=== PATIENT | male | born 1995 | race Caucasian/White ===

== ENCOUNTER 2017-07-26 04:28 | Emergency (ER) | payer SELFPAY ==
[2017-07-26 04:39] VITALS: BP 149/93
--- NOTE | 2017-07-26 05:15 | EDM.PDOC ---
ED HPI GENERAL MEDICAL PROBLEM - General Chief Complaint: Upper Extremity Injury/Pain Stated Complaint: RIGHT SHOULDER PAIN Time Seen by Provider: 07/26/17 05:11 Source of Information: Reports: Patient - History of Present Illness INITIAL COMMENTS - FREE TEXT/NARRATIVE: HISTORY AND PHYSICAL: History of present illness: [Patient presents after arm wrestling tonight he has complaint of right shoulder pain 8 out of 10 initially he did take 3 Advil and is nonradiating worsened by movement of his arm initially, he arrives with his shoulder in a sling for comfort no fever nausea vomiting chills sweats no chest pain shortness breath headache dizziness palpitation about a urine symptoms Patient went down for x-rays on return removing the right upper extremity from a sling he does have a full range of motion entire limb is neurovascularly intact no redness warmth open lesions no bruising he is tender over the insertion of the bicep tendon as well as pectoralis major I can reproduce symptomology Otherwise x-ray does not appear to have any osseous abnormality acute process or dislocation etc. ] Review of systems: As per history of present illness and below otherwise all systems reviewed and negative. Past medical history: As per history of present illness and as reviewed below otherwise noncontributory. Surgical history: As per history of present illness and as reviewed below otherwise noncontributory. Social history: No reported history of drug or alcohol abuse. Family history: As per history of present illness and as reviewed below otherwise noncontributory. Physical exam: HEENT: Atraumatic, normocephalic, pupils reactive, negative for conjunctival pallor or scleral icterus, mucous membranes moist, throat clear, neck supple, nontender, trachea midline. Lungs: Clear to auscultation, breath sounds equal bilaterally, chest nontender. Heart: S1S2, regular, negative for clicks, rubs, or JVD. Abdomen: Soft, nondistended, nontender. Negative for masses or hepatosplenomegaly. Negative for costovertebral tenderness. Pelvis: Stable nontender. Genitourinary: Deferred. Rectal: Deferred. Extremities: Atraumatic, negative for cords or calf pain. Neurovascular unremarkable. Neuro: Awake, alert, oriented. Cranial nerves II through XII unremarkable. Cerebellum unremarkable. Motor and sensory unremarkable throughout. Exam nonfocal. Diagnostics: [Right shoulder complete ] Therapeutics: [Rest ice ibuprofen Sling for comfort 48 hours maximum] Impression: [Right shoulder pain Muscle spasm/tendinitis] Definitive disposition and diagnosis as appropriate pending reevaluation and review of above. right shoulder Pain Score (Numeric/FACES): 3 - Related Data Allergies Allergy/AdvReac Type Severity Reaction Status Date / Time No Known Allergies Allergy Verified 07/26/17 04:33 Home Meds: Home Meds . [No Known Home Meds] 09/07/15 [History] Past Medical History - Past Health History Medical/Surgical History: Denies Medical/Surgical History Social & Family History - Tobacco Use Smoking Status *Q: Never Smoker - Recreational Drug Use Recreational Drug Use: No - Living Situation & Occupation Occupation: Employed Review of Systems - Review of Systems Review Of Systems: ROS reveals no pertinent complaints other than HPI. ED EXAM, GENERAL - Physical Exam Exam: See Below Course - Vital Signs Last Recorded V/S: Last Vital Signs Temp 97.7 F 07/26/17 04:34 Pulse 105 H 07/26/17 04:34 Resp 16 07/26/17 04:34 BP 149/93 H 07/26/17 04:34 Pulse Ox 96 07/26/17 04:34 - Orders/Labs/Meds Orders: Active Orders 24 hr Category Date Time Status Shoulder Comp Rt [CR] Stat Exams 07/26/17 04:41 Taken Departure - Departure Time of Disposition: 05:13 Disposition: Home, Self-Care 01 Condition: Good Clinical Impression: Muscle spasm, Tendinitis, Right shoulder pain - Discharge Information Referrals: PCP,None [Primary Care Provider] - Additional Instructions: Rest Ice 20 minute intervals 3 times daily as needed Ibuprofen 400-800 mg 3 times daily 7-10 days Return if symptoms persist or worsen or new concerning symptoms develop Follow-up with primary care orthopedist in approximately 2 weeks You may wear your sling for comfort for 48 hours as needed [facility] [address] [place] [id number] [facility] Professional Building [address] [place] [address], [address] [place] [address] my orthopedic The following information is given to patients seen in the emergency department who are being discharged to home. This information is to outline your options for follow-up care. We provide all patients seen in our emergency department with a follow-up referral. The need for follow-up, as well as the timing and circumstances, are variable depending upon the specifics of your emergency department visit. If you don't have a primary care physician on staff, we will provide you with a referral. We always advise you to contact your personal physician following an emergency department visit to inform them of the circumstance of the visit and for follow-up with them and/or the need for any referrals to a consulting specialist. The emergency department will also refer you to a specialist when appropriate. This referral assures that you have the opportunity for follow-up care with a specialist. All of these measure are taken in an effort to provide you with optimal care, which includes your follow-up. Under all circumstances we always encourage you to contact your private physician who remains a resource for coordinating your care. When calling for follow-up care, please make the office aware that this follow-up is from your recent emergency room visit. If for any reason you are refused follow-up, please contact the [facility] emergency department at and asked to speak to the emergency department charge nurse. - My Orders Last 24 Hours: My Active Orders 07/26/17 04:41 Shoulder Comp Rt [CR] Stat - Assessment/Plan Last 24 Hours: My Active Orders 07/26/17 04:41 Shoulder Comp Rt [CR] Stat
--- NOTE | 2017-07-26 16:33 | CR ---
EXAM DATE: 07/26/17 PATIENT'S AGE: 22 Patient: YVON ROSAS Facility: [place], [place] Site . Site : 1995 Study: XRay Shoulder Right [id number] 4:57:56 AM Ordering Physician: Doctor Neff Final Report: Indication: Pain right shoulder after arm wrestling tonight. Prior dislocation. Technique: Right shoulder three views. Comparison: None. Findings: No acute fracture or dislocation. No additional osseous abnormality. Soft tissues as imaged are unremarkable. Impression: No acute osseous abnormality. Dictated by Ricardo Leon MD @ 07/26/2017 5:05:02 AM Dictated by: Ricardo Leon MD @ 07/26/2017 05:05:16 (Electronic Signature) Report Signed by Proxy. [facility]ITAL[facility]
== END 2017-07-26 05:20 | disposition home or self-care (01) ==
LOC: MW.ED 04:28
DX: M75.91 Shoulder lesion, unspecified, right shoulder (principal); M62.838 Other muscle spasm
CPT/HCPCS: 73030-26-RT; 73030-RT; 99283

== ENCOUNTER 2018-08-09 10:41 | Emergency (ER) | payer SELFPAY ==
--- NOTE | 2018-08-09 11:00 | EDM.PDOC ---
ED HPI GENERAL MEDICAL PROBLEM - General Chief Complaint: Abdominal Pain Stated Complaint: STOMACH ACHE Time Seen by Provider: 08/09/18 10:47 Source of Information: Reports: Patient History Limitations: Reports: No Limitations - History of Present Illness INITIAL COMMENTS - FREE TEXT/NARRATIVE: HISTORY AND PHYSICAL: History of present illness: Patient is a 23-year-old male who presents to the emergency room with complaints of upper abdominal pain and multiple bouts of diarrhea. He states he noticed the symptoms starting on Saturday after eating. He reports that anytime he eats he'll have abdominal cramping and diarrhea for the next 2-4 hours. He denies any fever, chills, chest pain, shortness of breath or cough. He denies any nausea, vomiting or dysuria. He has been eating and drinking appropriately although has tried to decrease his intake as he is trying to avoid the symptoms related to food. He has not used any [id number] products. Has not had any recent travel or any antibiotic use. Has not noted any blood or mucus in his stools. Review of systems: As per history of present illness and below otherwise all systems reviewed and negative. Past medical history: As per history of present illness and as reviewed below otherwise noncontributory. Surgical history: As per history of present illness and as reviewed below otherwise noncontributory. Social history: See social history for further information Family history: As per history of present illness and as reviewed below otherwise noncontributory. Physical exam: General: Well-developed and well-nourished when he 3-year-old male. Alert and oriented. Nontoxic appearing and in no acute distress. HEENT: Atraumatic, normocephalic, pupils equal and reactive bilaterally, negative for conjunctival pallor or scleral icterus, mucous membranes moist, TMs normal bilaterally, throat clear, neck supple, nontender, trachea midline. No drooling or trismus noted. No meningeal signs. No hot potato voice noted. Lungs: Clear to auscultation, breath sounds equal bilaterally, chest nontender. Heart: S1S2, regular rate and rhythm without overt murmur Abdomen: Soft, nondistended, diffuse tenderness to the upper abdomen. Negative for masses or hepatosplenomegaly. Negative for costovertebral tenderness. Pelvis: Stable nontender. Genitourinary: Deferred. Rectal: Deferred. Skin: Intact, warm, dry. No lesions or rashes noted. Extremities: Atraumatic, negative for cords or calf pain. Neurovascular unremarkable. Neuro: Awake, alert, oriented. Cranial nerves II through XII unremarkable. Cerebellum unremarkable. Motor and sensory unremarkable throughout. Exam nonfocal. Notes: Lab work is unremarkable. The urinalysis does show some WBCs, culture has been added. Stool sample shows 80's positive for Campylobacter. We'll give him some azithromycin and Bentyl. Images were deferred at this time. We discussed supportive care measures at home. He voices understanding and will follow up with the primary care provider next week. Denies any further questions or concerns at this time. Diagnostics: CBC, CMP, UA, stool study, amylase, lipase Therapeutics: IV fluid Prescription: Azithromycin 500 mg 3 days Bentyl PRN Impression: Campylobacter diarrhea Plan: 1. Please make sure you are drinking plenty of fluids to prevent dehydration. 2. Take the antibiotic as prescribed. Take the Bentyl as needed up to 4 times daily for the stomach pain associated with diarrhea 3. Please follow-up with your primary care provider next week. Return to the ED as needed and as discussed. Definitive disposition and diagnosis as appropriate pending reevaluation and review of above. - Related Data Allergies Allergy/AdvReac Type Severity Reaction Status Date / Time No Known Allergies Allergy Verified 08/09/18 11:11 Home Meds: Home Meds . [No Known Home Meds] 09/07/15 [History] Past Medical History - Past Health History Medical/Surgical History: Denies Medical/Surgical History HEENT History: Reports: None Cardiovascular History: Reports: None Respiratory History: Reports: None - Infectious Disease History Infectious Disease History: Reports: None - Past Surgical History Cardiovascular Surgical History: Reports: None Social & Family History - Family History Family Medical History: Noncontributory - Living Situation & Occupation Occupation: Employed ED ROS GENERAL - Review of Systems Review Of Systems: ROS reveals no pertinent complaints other than HPI. ED EXAM, GI/ABD - Physical Exam Exam: See Below (See dictation) Course - Vital Signs Last Recorded V/S: Last Vital Signs Temp 98.2 F 08/09/18 11:11 Pulse 96 08/09/18 11:11 Resp 16 08/09/18 11:11 BP 120/88 08/09/18 11:11 Pulse Ox 98 08/09/18 11:11 - Orders/Labs/Meds Orders: Active Orders 24 hr Category Date Time Status CULTURE STOOL + CAMPY+SHIGATOX [RM] Stat Lab 08/09/18 11:08 Results CULTURE URINE [RM] Stat Lab 08/09/18 11:46 Ordered Labs: Laboratory Tests 08/09/18 08/09/18 08/09/18 Range/Units 11:08 11:21 11:21 WBC 8.22 (4.0-11.0) K/uL RBC 5.51 (4.50-5.90) M/uL Hgb 17.1 H (13.0-17.0) g/dL Hct 49.2 (38.0-50.0) % MCV 89.3 (80.0-98.0) fL MCH 31.0 (27.0-32.0) pg MCHC 34.8 (31.0-37.0) g/dL RDW Std Deviation 41.8 (28.0-62.0) fl RDW Coeff of Keyonna 13 (11.0-15.0) % Plt Count 252 (150-400) K/uL MPV 9.60 (7.40-12.00) fL Neut % (Auto) 45.3 L (48.0-80.0) % Lymph % (Auto) 39.7 (16.0-40.0) % Mcnairy % (Auto) 11.9 (0.0-15.0) % Eos % (Auto) 2.7 (0.0-7.0) % Baso % (Auto) 0.4 (0.0-1.5) % Neut # (Auto) 3.7 (1.4-5.7) K/uL Lymph # (Auto) 3.3 H (0.6-2.4) K/uL Mcnairy # (Auto) 1.0 H (0.0-0.8) K/uL Eos # (Auto) 0.2 (0.0-0.7) K/uL Baso # (Auto) 0.0 (0.0-0.1) K/uL Nucleated RBC % 0.0 /100WBC Nucleated RBCs # 0 K/uL Sodium 137 (136-148) mmol/L Potassium 3.9 (3.5-5.1) mmol/L Chloride 102 (98-107) mmol/L Carbon Dioxide 27.9 (21.0-32.0) mmol/L BUN 15 (7.0-18.0) mg/dL Creatinine 1.0 (0.8-1.3) mg/dL Est Cr Clr Drug Dosing 103.68 mL/min Estimated GFR (MDRD) > 60.0 ml/min Glucose 111 H (74-106) mg/dL Calcium 9.1 (8.5-10.1) mg/dL Total Bilirubin 0.4 (0.2-1.0) mg/dL AST 36 (15-37) IU/L ALT 116 H (14-63) IU/L Alkaline Phosphatase 53 (46-116) U/L Total Protein 8.0 (6.4-8.2) g/dL Albumin 3.6 (3.4-5.0) g/dL Globulin 4.4 H (2.6-4.0) g/dL Albumin/Globulin Ratio 0.8 L (0.9-1.6) Amylase 33 (25-115) U/L Lipase 82 (73-393) U/L Urine Color YELLOW Urine Appearance CLEAR Urine pH 5.5 (5.0-8.0) Ur Specific Pierce >= 1.030 (1.001-1.035) Urine Protein NEGATIVE (NEGATIVE) mg/dL Urine Glucose (UA) NEGATIVE (NEGATIVE) mg/dL Urine Ketones NEGATIVE (NEGATIVE) mg/dL Urine Occult Blood NEGATIVE (NEGATIVE) Urine Nitrite NEGATIVE (NEGATIVE) Urine Bilirubin NEGATIVE (NEGATIVE) Urine Urobilinogen 0.2 (<2.0) EU/dL Ur Leukocyte Esterase NEGATIVE (NEGATIVE) Urine RBC NONE SEEN (0-2/HPF) Urine WBC 2-4 (0-5/HPF) Ur Epithelial Cells RARE (NONE-FEW) Urine Bacteria RARE (NEGATIVE) Meds: Medications Discontinued Medications Generic Name Dose Route Start Last Admin Trade Name Freq PRN Reason Stop Dose Admin Dicyclomine HCl 10 mg 08/09/18 11:19 08/09/18 11:34 Bentyl PO 08/09/18 11:20 10 mg ONETIME ONE Administration Sodium Chloride 1,000 mls @ 999 mls/hr 08/09/18 11:19 08/09/18 11:34 Normal Saline IV 08/09/18 12:19 999 mls/hr STAT ONE Administration Departure - Departure Time of Disposition: 13:17 Disposition: Home, Self-Care 01 Clinical Impression: Campylobacter diarrhea - Discharge Information Instructions: Viral Gastroenteritis, Adult, [id number] Referrals: PCP,None [Primary Care Provider] - Forms: ED Department Discharge Additional Instructions: The following information is given to patients seen in the emergency department who are being discharged to home. This information is to outline your options for follow-up care. We provide all patients seen in our emergency department with a follow-up referral. The need for follow-up, as well as the timing and circumstances, are variable depending upon the specifics of your emergency department visit. If you don't have a primary care physician on staff, we will provide you with a referral. We always advise you to contact your personal physician following an emergency department visit to inform them of the circumstance of the visit and for follow-up with them and/or the need for any referrals to a consulting specialist. The emergency department will also refer you to a specialist when appropriate. This referral assures that you have the opportunity for follow-up care with a specialist. All of these measure are taken in an effort to provide you with optimal care, which includes your follow-up. Under all circumstances we always encourage you to contact your private physician who remains a resource for coordinating your care. When calling for follow-up care, please make the office aware that this follow-up is from your recent emergency room visit. If for any reason you are refused follow-up, please contact the [facility] Emergency Department at and asked to speak to the emergency department charge nurse. [facility] [address] [place] [address] [id number] [address] [address] 1. Please make sure you are drinking plenty of fluids to prevent dehydration. 2. Take the antibiotic as prescribed. Take the Bentyl as needed up to 4 times daily for the stomach pain associated with diarrhea 3. Please follow-up with your primary care provider next week. Return to the ED as needed and as discussed. - My Orders Last 24 Hours: My Active Orders 08/09/18 11:08 CULTURE STOOL + CAMPY+SHIGATOX [RM] Stat 08/09/18 11:46 CULTURE URINE [RM] Stat - Assessment/Plan Last 24 Hours: My Active Orders 08/09/18 11:08 CULTURE STOOL + CAMPY+SHIGATOX [RM] Stat 08/09/18 11:46 CULTURE URINE [RM] Stat
[2018-08-09] MEDS ORDERED: Sodium Chloride 0.9% 1,000 ML IV ONE (11:19)
[2018-08-09] MEDS ORDERED: Dicyclomine 10 MG Cap PO ONE (11:19)
[2018-08-09 12:06] LABS: CHLORIDE,CL 102 mmol/L (98-107); SODIUM,NA 137 mmol/L (136-148)
[2018-08-09 13:31] VITALS: BP 122/79
== END 2018-08-09 12:40 | disposition home or self-care (01) ==
LOC: MW.ED 10:41
DX: A04.5 Campylobacter enteritis (principal)
CPT/HCPCS: 36415; 80053; 81001; 82150; 83690; 85025; 87046; 87086; 87899; 96360; 99284; A9270; J7040